=== PATIENT | female | born 1970 | race Caucasian/White ===

== ENCOUNTER 2017-01-27 18:22 | Emergency (ER) | payer BC ==
[~2017-01-27] VITALS: Ht 172.7 cm; Wt 65.0 kg
[~2017-01-27 18:22] MED LIST: DOXY75TA2 PO; IBUP800T25 PO
[2017-01-27 19:01] VITALS: Ht 172.7 cm; Wt 65.0 kg
[2017-01-27] MEDS ORDERED: METOCLOPRAMIDE 10 MG INJ IV STA (20:40)
[2017-01-27] MEDS ORDERED: SOD CHLORIDE 0.9% 1,000 ML IV STA (20:40)
--- NOTE | 2017-01-27 21:02 | ERA ---
ER Documentation Chief Complaint Date/Time DATE: 01/27/17 TIME: 21:01 Chief Complaint abd pain x 1 day. states hx of lymphoma HPI 46-year-old female with a history of stage IV lymphoma presents with a one-day acute onset of upper abdominal pain. Patient has not had symptoms like this in the past. No history of abdominal surgeries. Patient took Neulasta on Monday. Is undergoing chemo. Being followed by [place] [facility]. Denies nausea, vomiting, constipation, diarrhea, fever, chills. No sick contacts. Was told by her oncologist to go to the ER. ROS All systems reviewed and are negative except as per history of present illness. Medications Home Meds Active Scripts Ibuprofen* (Motrin*) 800 Mg Tab, 800 MG PO Q6H Y for PAIN AND OR ELEVATED TEMP, #30 TAB Prov:DIANA MORRIS DO 09/06/15 Reported Medications Doxycycline Hyclate* (Doxycycline Hyclate*) 75 Mg Tablet.dr, 150 MG PO DAILY 03/12/13 Allergies Allergies: Coded Allergies: No Known Drug Allergies (Verified Allergy, Unknown, 01/27/17) Uncoded Allergies: PECANS (Allergy, Intermediate, SWELLING OF THROAT, 03/12/13) TOMATOES (Allergy, Intermediate, SWELLING OF THROAT, 03/12/13) PMhx/Soc History of Surgery: No Anesthesia Reaction: No Hx Neurological Disorder: No Hx Respiratory Disorders: No Hx Cardiac Disorders: No Hx Psychiatric Problems: No Hx Miscellaneous Medical Probl: Yes (RUPTURED OVARIAN CYST, INTESTINAL OBSTRUCTION) Hx Alcohol Use: Yes (OCASSIONAL ) Hx Substance Use: No Hx Tobacco Use: No Physical Exam Vitals Vital Signs Date Time Temp Pulse Resp B/P Pulse Ox O2 Delivery O2 Flow Rate FiO2 01/27/17 19:01 97.2 69 18 122/61 100 Physical Exam Const: Well-appearing. No acute distress. Head: Normocephalic, Atraumatic. Eyes: Non-injected; No discharge. EOMI and LEVI bilaterally. Ears: Normal External Ears, EACs clear, TM normal bilaterally without erythema. Nose: Normal external nose; no discharge, or sinus tenderness. Oral: No oral edema visualized. Mucous membranes moist and pink. Neck: No cervical lymphadenopathy, or masses palpated. Supple ~ No meningismus. Pulm: Good air movement in upper and lower respiratory tracts. Clear to auscultation bilaterally. No dyspnea or stridor. Cardio: Regular rate and rhythm; No murmurs, gallops or rubs auscultated. Radial pulses 2+ bilaterally. No cyanosis noted. Capillary refill less than 2 seconds. Abd: Mild epigastric tenderness. Normal bowel sounds. Soft nondistended. MS: Normal motor strength, normal tone with gross examination. Skin: No petechiae or rashes. Good turgor. Back: No midline, flank or CVA tenderness. Ext: No edema. Normal movement of all extremities grossly observed. Neur: Neurovascularly intact bilaterally. Psych: Normal Mood and Affect. Result Diagram: 01/27/17210901/27/172109 Results 24 hrs Laboratory Tests Test 01/27/17 21:10 White Blood Count 9.710^3/ul Red Blood Count 4.3610^6/ul Hemoglobin 13.1g/dl Hematocrit 40.0% Mean Corpuscular Volume 91.7fl Mean Corpuscular Hemoglobin 30.0pg Mean Corpuscular Hemoglobin Concent 32.8g/dl Red Cell Distribution Width 12.0% Platelet Count 64037^3/UL Mean Platelet Volume 8.9fl Neutrophils % % Segmented Neutrophils % (Manual) 79% Band Neutrophils % (Manual) 3% Lymphocytes % (Manual) 14% Monocytes % (Manual) 2% Eosinophils % % Basophils % % Basophils % (Manual) 2% Nucleated Red Blood Cells % 0.0/100WBC Neutrophils # 10^3/ul Neutrophils # (Manual) 7.710^3/ul Band Neutrophils # 0.210^3/ul Absolute Lymphocytes (Manual) 1.310^3/ul Absolute Monocytes (Manual) 0.110^3/ul Eosinophils # 10^3/ul Basophils # 10^3/ul Basophils # (Manual) 0.110^3/ul Platelet Estimate NORMAL Prothrombin Time 12.0Sec Prothrombin Time Ratio 0.9 INR International Normalized Ratio 0.89 Activated Partial Thromboplast Time 24.9Sec Urine Color YELLOW Urine Clarity CLEAR Urine pH 5.0 Urine Specific [place] 1.012 Urine Ketones NEGATIVEmg/dL Urine Nitrite NEGATIVEmg/dL Urine Bilirubin NEGATIVEmg/dL Urine Urobilinogen NEGATIVEmg/dL Urine Leukocyte Esterase NEGATIVELeu/ul Urine Hemoglobin NEGATIVEmg/dL Urine Glucose NEGATIVEmg/dL Urine Total Protein NEGATIVEmg/dl Sodium Level 142mmol/L Potassium Level 3.6mmol/L Chloride Level 102mmol/L Carbon Dioxide Level 30mmol/L Anion Gap 14 Blood Urea Nitrogen 12mg/dl Creatinine 0.73mg/dl Glucose Level 87mg/dl Calcium Level 9.3mg/dl Total Bilirubin 0.1mg/dl Direct Bilirubin 0.00mg/dl Indirect Bilirubin 0.1mg/dl Aspartate Amino Transf (AST/SGOT) 26IU/L Alanine Aminotransferase (ALT/SGPT) 40IU/L Alkaline Phosphatase 101IU/L Total Protein 7.1g/dl Albumin 4.3g/dl Globulin 2.80g/dl Albumin/Globulin Ratio 1.53 Lipase 67U/L Current Medications Medications (Trade) Dose Ordered Sig/Brii Route PRN Reason Start Time Stop Time Status Last Admin Dose Admin Sodium Chloride (NS) 1,000 ml @ 1,000 mls/hr Q1H STAT IV 01/27/17 20:40 01/27/17 21:39 DC 01/27/17 21:19 Metoclopramide HCl (Reglan) 10 mg ONCE STAT IV 01/27/17 20:40 01/27/17 20:43 DC IV Flush 10 ml 10 ml STK-MED ONCE .ROUTE 01/27/17 22:13 01/27/17 22:14 DC 01/27/17 22:24 Sodium Chloride (NS) 100 ml @ ud STK-MED ONCE .ROUTE 01/27/17 22:13 01/27/17 22:14 DC 01/27/17 22:24 Iohexol (Omnipaque 300mg/ ml) 150 ml STK-MED ONCE .ROUTE 01/27/17 22:13 01/27/17 22:14 DC 01/27/17 22:25 Procedures/MDM 46-year-old female with history of stage IV lymphoma presents with a chief complaint of acute upper abdominal pain. Physical examination reveals epigastric tenderness. The spleen was unable to be palpated. Has not taken any medications for pain at this time. Laboratory studies were taken and the results were as follows: Neutrophils 79. PT 12.0. APTT 24.9. Urinalysis unremarkable. Urine negative. CT was obtained, read by the radiologist, given the following impression: 1. Moderate-sized right pleural effusion and right basilar atelectasis. 2. Mild left basilar atelectasis and small left pleural effusion. 3. Contracted but otherwise unremarkable gallbladder. 4. Right retroperitoneal mass and periaortic lymphadenopathy. Iliac lymphadenopathy. The findings are suspicious for lymphoma or other neoplasm. 5. Small amount of free fluid in the cul-de-sac. 6. Mixed sclerotic and lytic lesions in the left iliac bone and L4 vertebral body. 7. Otherwise unremarkable study. I presented the case and reviewed these results with my attending Dr. Villegas who has suggested since the patient is well-appearing, is in no acute distress, and has appropriate O2 stats that she is appropriate for discharge. Of low suspicion for splenic rupture, pancreatic involvement, cholangitis, other serious bacterial infection. I have spoke with the patient regarding their condition and future management. They have verbally responded that they understand their status and treatment plan. The patients vitals are stable, and their current condition is appropriate for discharge. The patient will be given discharge instructions with return precautions. Departure Additional Instructions: Follow up with your PCP within the next 1-3 days for a more thorough evaluation and a possible referral to a specialist. Return the the emergency department immediately if symptoms worsen or change. If you have any questions regarding medications, ask your pharmacist or us before you leave. If any adverse reactions occur while taking your medications, discontinue the treatment and return to the emergency department immediately. MARC BRASWELL PA-C Jan 27, 2017 21:02
[2017-01-27 21:39] LABS: ABNORMAL IP MESSAGE 1; HEMOGLOBIN 13.1 g/dl (12.0-16.0); MEAN CORPUSCULAR HGB CONC 32.8 g/dl (32.0-37.0); MEAN CORPUSCULAR VOLUME 91.7 fl (82.0-101.0); MEAN PLATELET VOLUME 8.9 fl (7.4-10.4); PLATELET COUNT 190 10^3/UL (140-415); RED BLOOD COUNT 4.36 10^6/ul (4.20-5.40); WHITE BLOOD COUNT 9.7 10^3/ul (4.8-10.8)
[2017-01-27 21:43] LABS: ADD UMIC NO; UR ASCORBIC ACID NEGATIVE (NEGATIVE); UR BILIRUBIN (Dip) NEGATIVE (NEGATIVE); UR BLOOD (Dip) NEGATIVE (NEGATIVE); UR CLARITY CLEAR (CLEAR); UR COLOR YELLOW (YELLOW); UR GLUCOSE (Dip) NEGATIVE (NEGATIVE); UR KETONES (Dip) NEGATIVE (NEGATIVE); UR LEUKOCYTE ESTERASE (Dip) NEGATIVE Leu/ul (NEGATIVE); UR NITRITE (Dip) NEGATIVE (NEGATIVE); UR SPECIFIC GRAVITY (Dip) 1.012 (1.003-1.030); UR TOTAL PROTEIN (Dip) NEGATIVE (NEGATIVE); UR UROBILINOGEN (Dip) NEGATIVE (NEGATIVE)
[2017-01-27 21:47] LABS: INR 0.89; POSITIVE DIFF @See below; PT RATIO 0.9
[2017-01-27 21:48] LABS: PARTIAL THROMBOPLASTIN TIME 24.9 Sec (25.0-35.0)
[2017-01-27 22:03] LABS: ALBUMIN 4.3 g/dl (3.3-4.9); ALBUMIN/GLOBULIN RATIO 1.53; BILIRUBIN,INDIRECT 0.1 mg/dl (0-1.1); BILIRUBIN,TOTAL 0.1 mg/dl (0.2-1.3); CALCIUM 9.3 mg/dl (8.4-10.2); CREATININE 0.73 mg/dl (0.44-1.00); POTASSIUM 3.6 mmol/L (3.5-5.1); TOTAL PROTEIN 7.1 g/dl (6.1-8.1)
[2017-01-27] MEDS ORDERED: IOHEXOL 300MG/ML 150 ML BTL ONE (22:13)
[2017-01-27] MEDS ORDERED: SOD CHLORIDE 0.9% 100 ML ONE (22:13)
[2017-01-27 22:15] LABS: BASOPHILS % (M) 2 % (0-2); MONOCYTES % (M) 2 % (0-11); PLATELET ESTIMATE NORMAL
--- NOTE | 2017-01-27 22:48 | RADRPT ---
PROCEDURE: CT Abdomen and Pelvis with contrast. CLINICAL INDICATION: Abdomen and pelvis pain. TECHNIQUE: CT scan of the abdomen and pelvis with contrast was performed. The patient was scanned following the uncomplicated intravenous administration of 100 cc of Omnipaque-300. Coronal and sag ittal reformatted images were obtained from the axial source images. Images were reviewed on a high- resolution PACS workstation. Total exam DLP is 363.63 mGy-cm. CTDIvol is 6.36 mGy. One or more of the following dose reduction techniques were used: Automated exposure control, adjustment of the mA and/or kV according to patient size, use of iterative reconstruction technique. COMPARISON: 03/12/2013. FINDINGS: There is a moderate-sized right pleural effusion and associated right basilar atelectasis. There is mild left basilar atelectasis and a small left pleural effusion. There is no pericardial effusion. The liver is normal in size and attenuation. There is no focal hepatic lesion. The gallbladder is contracted but otherwise unremarkable. The spleen is normal in size. There is no focal splenic lesion. Both adrenals are normal with no enlargement or mass. The pancreas is unremarkable with no mass or evidence of pancreatitis. Both kidneys demonstrate normal contrast enhancement. There is no renal mass or hydronephrosis. The abdominal aorta is not dilated. There is a right retroperitoneal mass posterior to the upper and mid inferior vena cava measuring ap proximately 3.2 x 6.4 x 7.7 cm in AP, transverse, and cranial caudal dimensions consistent with lymp hadenopathy. Several other enlarged lymph nodes are present on the left side of the aorta. There is probable right retrocrural lymphadenopathy measuring 1.2 cm. Multiple mildly enlarged lymph nodes are present adjacent to the common iliac arteries measuring up to 1.7 cm on the right and 2.1 cm on the left. The bladder and distal ureters are normal. The periappendiceal region is unremarkable with no evidence of appendicitis. The bowel and mesentery are normal. A small amount of free fluid is present in the cul-de-sac. There is no free air. There is mixed sclerosis and lysis throughout the left iliac bone and possible lysis in the left elton e of the sacrum. There is probable mixed sclerosis and lysis in the L4 vertebrae inferiorly. IMPRESSION: 1. Moderate-sized right pleural effusion and right basilar atelectasis. 2. Mild left basilar atelectasis and small left pleural effusion. 3. Contracted but otherwise unremarkable gallbladder. 4. Right retroperitoneal mass and periaortic lymphadenopathy. Iliac lymphadenopathy. The findings a re suspicious for lymphoma or other neoplasm. 5. Small amount of free fluid in the cul-de-sac. 6. Mixed sclerotic and lytic lesions in the left iliac bone and L4 vertebral body. 7. Otherwise unremarkable study. RPTAT: QQ .Adi Palacios MD, MD Date Time Electronically viewed and signed by .Adi Palacios MD, MD on 01/27/2017 22:48 .R/
== END 2017-01-27 23:09 | disposition home or self-care (01) ==
LOC: FTE 18:22
DX: R10.10 Upper abdominal pain, unspecified (principal)
CPT/HCPCS: 36415; 74177; 80053; 81003; 83690; 85025; 85610; 85730; J2765; J7030; Q9967; Z7502; Z7610

== ENCOUNTER 2017-08-01 07:47 | Day surgery (SDC) | END 2017-08-01 12:50 | disposition home or self-care (01) ==